=== PATIENT | male | born 1980 | race Caucasian/White ===

== ENCOUNTER 2020-06-13 17:07 | Emergency (ER) | payer OTHER ==
[~2020-06-13] VITALS: Ht 182.9 cm; Wt 109.1 kg
--- NOTE | 2020-06-13 17:51 | RAD ---
Exam: Left finger 3 views INDICATION: Left thumb pain after trauma TECHNIQUE: Frontal view of the left hand with oblique and lateral views of the first digit Comparisons: None FINDINGS: There is a obliquely oriented fracture through the tuft of the first digit. Mild surrounding soft tis felipe swelling. No other fractures. Joint spaces are well-maintained. IMPRESSION: Obliquely oriented fracture of the distal tuft of the first digit. Electronically signed by: Adrien Zaidi MD (06/13/2020 5:49 PM) ANGELINE
[2020-06-13] MEDS ORDERED: LIDOCAINE 1% PF 2 ML VIAL. INJ ONE (18:15)
[2020-06-13] MEDS ORDERED: MORPHINE SULFATE 10 MG/ML VIAL. IM ONE (18:15)
[2020-06-13] MEDS ORDERED: cefTRIAXone IM 1 GM VIAL IM ONE (18:15)
--- NOTE | 2020-06-13 18:23 | PHYS DOC ---
General Adult EDM: Chief Complaint: THUMB HPI: HPI: Patient is a 39 year old male patient presenting to the ED today with injury to the left thumb that occurred a couple minutes prior to coming to the ED, patient reports he was working with loop sewer cables that trapped his left thumb. Patient is right-handed. (FELIX JONES APRN) Review of Systems: Review of Systems: Constitutional: Denies fever or chills. [] Musculoskeletal: Reports left thumb injury. Denies back pain or joint pain. [] Integument: Denies rash. [] Neurologic: Denies headache, focal weakness or sensory changes. [] ] Psychiatric: Denies depression or anxiety. [] (FELIX JONES TRAINING DEVELOPER) Heart Score: C/O Chest Pain: N/A Risk Factors: Risk Factors: DM, Current or recent (<one month) smoker, HTN, HLP, family history of CAD, obesity. Risk Scores: Score 0 - 3: 2.5% MACE over next 6 weeks - Discharge Home Score 4 - 6: 20.3% MACE over next 6 weeks - Admit for Clinical Observation Score 7 - 10: 72.7% MACE over next 6 weeks - Early Invasive Strategies (FELIX JONES TRAINING DEVELOPER) Current Medications: Current Medications Medications (Trade) Dose Ordered Sig/Angie Start Time Stop Time Status Last Admin Dose Admin Ceftriaxone Sodium (Rocephin Im) 1 gm 1X ONCE 06/13/20 18:15 06/13/20 18:16 UNV Lidocaine HCl (Xylocaine-Mpf 1% 2ml Vial) 2 ml 1X ONCE 06/13/20 18:15 06/13/20 18:16 UNV Morphine Sulfate (Morphine Sulfate) 5 mg 1X ONCE 06/13/20 18:15 06/13/20 18:16 UNV (FELIX JONES TRAINING DEVELOPER) Allergies: Allergies: Allergies Coded Allergies Type Severity Reaction Last Updated Verified No Known Drug Allergies 06/13/20 No (FELIX JONES APRN) Physical Exam: PE: Constitutional: Well developed, well nourished, no acute distress, non-toxic appearance. [] Skin: Warm, dry, no erythema, no rash. [] Back: No tenderness, no CVA tenderness. [] Extremities: Left thumb nail base is distracted/removed from the base. There is subungual hematoma underneath the nailbed. There is a laceration on top on the tip of the finger. Full range of motion to the left thumb. +2 left radial pulse. Adequate radial sensation to the left hand. Cap refill less than 2 seconds in left thumb. Neurologic: Alert and oriented X 3, normal motor function, normal sensory function, no focal deficits noted. [] Psychologic: Affect normal, judgement normal, mood normal. [] (FELIX JONES APRN) EKG: EKG: [] (FELIX JONES APRN) Radiology/Procedures: Radiology/Procedures: PROCEDURE: FINGER(S) LEFT Exam: Left finger 3 views INDICATION: Left thumb pain after trauma TECHNIQUE: Frontal view of the left hand with oblique and lateral views of the first digit Comparisons: None FINDINGS: There is a obliquely oriented fracture through the tuft of the first digit. Mild surrounding soft tissue swelling. No other fractures. Joint spaces are well- maintained. IMPRESSION: Obliquely oriented fracture of the distal tuft of the first digit. Electronically signed by: Adrien Ladd MD (06/13/2020 5:49 PM) [facility] DICTATED and SIGNED BY: ADRIEN LADD MD DATE: 06/13/20 [id number] 0 Laceration/Wound Repair Wound Location: Left arm Wound's Depth, Shape: Nailbed avulsion Wound Length (cm): Approximately 2 cm Wound Explored: clean Irrigated w/ Saline (ccs): 1000 Betadine Prep?: Yes Anesthesia: 1% of lidocaine 2 mL and bupivacaine 0.5%14 ml was used to perform a digital block successfully Wound Repaired With: The nail was placed back and held with 3 interrupted sutures using three-point 0 Vicryl Progress : Wound was covered with nonstick dressing (FELIX JONES APRN) Course & Med Decision Making: Course & Med Decision Making Pertinent Labs and Imaging studies reviewed. (See chart for details) This is a 39-year-old male patient presenting to the ED today with left ankle injury. See HPI. Left thumb x-rays interpreted by radiologist were noted for Obliquely oriented fracture of the distal tuft of the first digit. Spoke with Dr. Duff at who requested we close the laceration/place the nail back in place and patient can follow-up with him in the office on Saturday. Patient was given 1 g of Rocephin IM in the ED and discharged on cephalexin. Also given hydrocodone for home given tetanus in the ED (FELIX JONES ZAIDA) Janice Disclaimer: Janice Disclaimer: This electronic medical record was generated, in whole or in part, using a voice recognition dictation system. (FELIX JONES ZAIDA) Departure Departure Impression: Primary Impression: Open fracture of tuft of distal phalanx of finger Additional Impression: Nail avulsion, finger Qualified Codes: S61.309A - Unspecified open wound of unspecified finger with damage to nail, initial encounter Disposition: 01 DC HOME SELF CARE/HOMELESS Condition: STABLE Referrals: NO PCP (PCP) You were evaluated in the emergency room for right thumb injury. Please follow- up with Dr. Duff at [facility] on Saturday. Call his office tomorrow morning and set up a follow-up appointment. Patient Instructions: Finger Avulsion, Finger Fracture Additional Instructions: You were evaluated in the emergency room for right thumb injury. Please follow- up with Dr. Duff at [facility] on Saturday. Call his office tomorrow morning and set up a follow-up appointment. His phone number is [phone]. Try to ice and elevate the affected finger. Scripts Hydrocodone Bit/Acetaminophen (HYDROCODONE-APAP 5-325 ) 1 Tab Tablet 1 TAB PO PRN Q6HRS PRN for PAIN, #20 TAB 0 Refills Prov: FELIX JONES ZAIDA 06/13/20 Cephalexin (CEPHALEXIN) 500 Mg Tablet 1 TAB PO TID, #30 TAB Prov: FELIX JONES ZAIDA 06/13/20 Attending Signature Attending Signature I have reviewed the PA/DIGITAL ADVERTISING SPECIALIST's note and plan of care. I was available for consultation as needed during the patient's visit in the emergency department. I agree with the clinical impression, plan, and disposition. (UMER SANCHEZ DO) FELIX JONES Reza CERDA Jun 13, 2020 18:23 UMER SANCHEZ DO Jun 14, 2020 00:51
[2020-06-13] MEDS ORDERED: BUPIVACAINE MPF 0.5% 30 ML VIAL. INJ ONE (19:15)
[2020-06-13] MEDS ORDERED: DIPH,PERTUSS(ACELL),TET VAC/PF 0.5 ML SYRINGE. VAX IM ONE (19:45)
[2020-06-13] MEDS ORDERED: CEPH500T PO (21:00)
[2020-06-13] MEDS ORDERED: HYDR-2761 PO (21:00)
[2020-06-13 21:15] VITALS: BP 130/73
== END 2020-06-13 21:15 | disposition home or self-care (01) ==
LOC: ER 17:07
DX: S62.522A Displaced fracture of distal phalanx of left thumb, initial encounter for closed fracture (principal); S61.112A Laceration without foreign body of left thumb with damage to nail, initial encounter; Y29.XXXA Contact with blunt object, undetermined intent, initial encounter; Y93.89 Activity, other specified; Y92.89 Other specified places as the place of occurrence of the external cause; Y99.8 Other external cause status
CPT/HCPCS: 11730; 73140; 90471; 90715; 96372; 99284; J0696; J2270; J3490